=== PATIENT | female | born 1980 | race Caucasian/White ===

== ENCOUNTER 2018-06-01 23:42 | Observation (INO) | payer BC ==
[2018-06-01 23:45] VITALS: BMI 31.3
[2018-06-02] MEDS ORDERED: KETOROLAC TROMETHAMINE 30 MG/1 ML VIAL ONE (00:08)
[2018-06-02] MEDS ORDERED: KETOROLAC TROMETHAMINE 15 MG/ML VIAL IVPUSH ONE ×2 (00:11→03:31)
[2018-06-02] MEDS ORDERED: SODIUM CHLORIDE 0.9% 500 ML INFUS.BAG IV ONE (00:12)
[2018-06-02 00:19] LABS: BASO % 0.8 % (0-2.0); EOS % 1.8 % (0-4.5); HEMATOCRIT 38.8 % (32.4-45.2); HEMOGLOBIN 13.1 GM/dL (10.7-15.3); LYMPH % 29.3 % (8-40); MCH 29.9 pg (25.7-33.7); MCHC 33.7 g/dl (32.0-36.0); MEAN CELL VOLUME 88.8 fl (80-96); MEAN PLT VOLUME 8.6 fl (7.5-11.1); NEUT % 58.1 % (42.8-82.8); PLATELET COUNT 210 K/MM3 (134-434); RBC 4.36 M/mm3 (3.60-5.2); RDW 12.6 % (11.6-15.6); WHITE BLOOD COUNT 8.6 K/mm3 (4.0-10.0)
[2018-06-02 00:27] LABS: URINE APPEARANCE CLEAR; URINE BILIRUBIN NEGATIVE (<2.0 mg/dL); URINE COLOR COLORLESS; URINE GLUCOSE (UA) NEGATIVE (NEGATIVE); URINE KETONE NEGATIVE (NEGATIVE); URINE LEUK ESTERASE NEGATIVE (NEGATIVE); URINE NITRITE NEGATIVE (NEGATIVE); URINE PROTEIN NEGATIVE (NEGATIVE); URINE UROBILINOGEN NEGATIVE mg/dL (0.2-1.0)
[2018-06-02] MEDS ORDERED: HYDROmorphone HCl 2 MG/ML VIAL ONE (00:37)
[2018-06-02] MEDS ORDERED: HYDROmorphone HCL CARPU-JECT 2 MG/1 ML DISP.SYRIN IVPUSH ONE (00:38)
[2018-06-02] MEDS ORDERED: ONDANSETRON 4 MG/2 ML VIAL IVPUSH ONE ×2 (00:38→06:38)
[2018-06-02 00:40] LABS: ALBUMIN 3.8 g/dl (3.4-5.0); ALK PHOS 52 U/L (45-117); ANION GAP 8 MMOL/L (8-16); BILIRUBIN,TOTAL 0.3 mg/dL (0.2-1); BLOOD UREA NITROGEN 14 mg/dL (7-18); CALCIUM 8.8 mg/dL (8.5-10.1); CHLORIDE 106 mmol/L (98-107); CO2 25 mmol/L (21-32); CREATININE 0.8 mg/dL (0.55-1.3); GLUCOSE,RANDOM 82 mg/dL (74-106); POTASSIUM 3.6 mmol/L (3.5-5.1); SGOT/AST 22 U/L (15-37); SGPT/ALT 23 U/L (13-61); SODIUM 140 mmol/L (136-145)
--- NOTE | 2018-06-02 00:53 | PDOC ---
History of Present Illness - General Chief Complaint: Pain, Acute Stated Complaint: PAIN, ACUTE Time Seen by Provider: 06/01/18 23:57 History Source: Patient Exam Limitations: No Limitations - History of Present Illness Initial Comments: 37 y/o female presenting to [facility] ER via private auto complaining of sudden onset of right flank pain and dysuria this evening. Denies hematuria, discharge , fevers, chills, or diaphoresis. Pt reports she has a similar episode on Tuesday (05/28/2018). She was evaluated at [place] [facility] and diagnosed with a right nephrolithiasis via CT scan. She was subsequently started on Flomax and followed up with Dr. Allen as outpatient on Tuesday (05/31/2018). KUB was obtained and showed a 6 x 4mm right urethral calculus at L3 level. She is scheduled for a procedure by Dr. Allen this coming Tuesday (06/06/2018). Was told to present to this department if her pain returned. 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 controlled Surgical Hx: - Past History - Past Medical History Allergies/Adverse Reactions: Allergies Allergy/AdvReac Type Severity Reaction Status Date / Time No Known Allergies Allergy Verified 06/01/18 23:45 Home Medications: Ambulatory Orders Tamsulosin HCl [Flomax] 0.4 mg PO DAILY 06/02/18 COPD: No - Suicide/Smoking/Psychosocial Hx Smoking History: Never smoked Review of Systems - Review of Systems Able to Perform ROS?: Yes Comments:: In addition to that documented in the HPI above, the additional ROS was obtained : Constitutional: Denies fevers or chills Eyes: Denies vision changes ENMT: Denies sore throat CV: Denies chest pain Resp: Denies SOB GI: Denies vomiting or diarrhea *Physical Exam - Vital Signs Last Vital Signs Temp Pulse Resp BP Pulse Ox 97.8 F 82 18 99/84 99 06/01/18 23:43 06/01/18 23:43 06/01/18 23:43 06/01/18 23:43 06/01/18 23:43 - Physical Exam Comments: Constitutional: Well-developed, well-nourished, nontoxic female in obvious discomfort. Found standing up pacing beside hospital bed. Alert and oriented x4. Answered all questions appropriately and completely. Speech was non-labored , non-pressured. HEENT: Normocephalic. No obvious external signs of trauma. Hearing grossly normal. No nasal discharge. Neck is supple, trachea is midline. Cardiovascular: Regular rate and regular rhythm. No murmur, rubs, clicks, or gallops. Peripheral pulses: Radial pulses full. Respiratory: Breathing unlabored. Equal chest rise and fall. Clear to auscultation bilaterally. No stridor, no wheezing, no rhonchi. Gastrointestinal: abdomen is mildly tender in RLQ and R flank without rebound or guarding. No overlying skin lesions or obvious signs of trauma. Neuro: Alert and oriented. Moving all four extremities spontaneously. Gait normal, observed walking through the department. Skin: Warm, dry, and intact. No bruising, rashes, or other lesions. No palpable nodules. : Moderate R CVA tenderness. Psych: Affect: appropriate. Mood: normal. Heart Score/ECG Review #1 General ECG Interpretation: Sinus Rhythm, Normal Rate, Normal Intervals, No acute ischemic changes ED Treatment Course - LABORATORY CBC & Chemistry Diagram: 06/01/18 23:50 06/01/18 23:50 - ADDITIONAL ORDERS Additional order review: Laboratory Results 06/02/18 06/02/18 06/01/18 00:05 00:05 23:50 Sodium 140 Potassium 3.6 Chloride 106 Carbon Dioxide 25 Anion Gap 8 BUN 14 Creatinine 0.8 Creat Clearance w eGFR > 60 Random Glucose 82 Calcium 8.8 Total Bilirubin 0.3 AST 22 ALT 23 Alkaline Phosphatase 52 Total Protein 7.0 Albumin 3.8 Urine Color Colorless Urine Appearance Clear Urine pH 7.0 Ur Specific [place] 1.001 L Urine Protein Negative Urine Glucose (UA) Negative Urine Ketones Negative Urine Blood 1+ H Urine Nitrite Negative Urine Bilirubin Negative Urine Urobilinogen Negative Ur Leukocyte Esterase Negative Urine WBC (Auto) 0-2 Urine RBC (Auto) <1 Urine HCG, Qual Negative 06/01/18 23:50 RBC 4.36 MCV 88.8 MCHC 33.7 RDW 12.6 MPV 8.6 Neutrophils % 58.1 Lymphocytes % 29.3 Monocytes % 10.0 Eosinophils % 1.8 Basophils % 0.8 - RADIOLOGY Radiology Studies Ordered: Category Date Time Status KIDNEY / RENAL US [US] Stat Ultrasound 06/02/18 00:17 Taken Radiograph Interpretation: Renal and Bladder U/S: Marlo Keane MD wrote on Jun 02, 2018 at 02:12 AM: Referring Physician: BISHOP PASTRANA Patient Name: KAILEE HOWELL THIS IS A PRELIMINARY REPORT FROM [facility] DATE OF SERVICE: 2018-06-02 00:36:04 IMAGES: 36 EXAM: Bilateral renal ultrasound HISTORY: Right flank pain. Known stone. Rule out hydronephrosis. COMPARISON: No prior scans transmitted for comparison FINDINGS: Right kidney measures 12.6 cm x 6.4 cm x 5.9 cm. There is moderate right hydronephrosis. Left kidney measures 11.9 cm x 5.3 cm x 4.7 cm. No left hydronephrosis. THIS DOCUMENT HAS BEEN ELECTRONICALLY SIGNED Marlo Keane MD 06/02/2018 02:12 EST - Medications Given in the ED: ED Medications Discontinued Medications Generic Name Dose Route Start Last Admin Trade Name Freq PRN Reason Stop Dose Admin Hydromorphone HCl 0.5 mg 06/02/18 00:38 06/02/18 00:40 Dilaudid Injection - IVPUSH 06/02/18 00:39 0.5 mg ONCE ONE Administration Ketorolac Tromethamine 30 mg 06/02/18 00:11 06/02/18 00:16 Toradol Injection - IVPUSH 06/02/18 00:12 30 mg ONCE ONE Administration Ondansetron HCl 4 mg 06/02/18 00:38 06/02/18 00:40 Zofran Injection IVPUSH 06/02/18 00:39 4 mg ONCE ONE Administration Sodium Chloride 1,000 ml 06/02/18 00:12 06/02/18 00:16 Normal Saline - IV 06/02/18 00:13 1,000 ml ONCE ONE Administration Medical Decision Making - Medical Decision Making *Reviewed vital signs, nursing notes, and prior visit documentation (if available). 37 y/o female complaining of recurrent episode of right flank pain. Diagnosed with right urethral calculus earlier this week. Afebrile. Vitals remarkable for borderline hypotension without tachycardia. No peritoneal signs on abdominal exam. Suspect renal colic secondary to nephrolithiasis from known calculus. Low suspicion for concurrent infection without systemic symptoms or fever. D/D: ectopic , pyelonephritis, cystitis. Ordered ketorolac, hydromorphone, zofran, and NS IVFB for symptom relief. UPreg: negative UA remarkable only for 1+ blood. Continue to have low suspicion for infectious cause. CBC unremarkable for leukocytosis or anemia. BMP unremarkable for elevation of BUM or Cr. GFR >60. U/S revealed moderate right hydronephrosis. 02:28 Telephone page sent to physician continuous improvement engineer for Dr. Allen. No answer for turret punch operator. Text page sent. Awaiting call back. Pt reports pain is managed at an acceptable level at this point. 02:[address] Barnes, urologist covering for Dr. Allen. Requested pt be admitted with concern for moderate hydronephrosis. Will evaluate pt in the morning. Microblog sent to [facility] for admission. 06/02/18 03:09 Bedside consultation with resident Dr. Barnes. Will admit pt to med/surg on observation status for attending Dr. Gonsales. *DC/Admit/Observation/Transfer Diagnosis at time of Disposition: Hydronephrosis concurrent with and due to calculi of kidney and ureter - Discharge Dispostion Condition at time of disposition: Stable Decision to Admit order: Yes - Referrals - Patient Instructions - Post Discharge Activity
--- NOTE | 2018-06-02 01:06 | PDOC ---
Attending Attestation - Resident Resident Name: Deniz Jenkins - ED Attending Attestation I have performed the following: I have examined & evaluated the patient, The case was reviewed & discussed with the resident, I agree w/resident's findings & plan, Exceptions are as noted - Medical Decision Making 06/02/18 00:46 I, Dr. Zuri Tolliver DO, attest that this document has been prepared under my direction and personally reviewed by me in its entirety. I further attest, that it accurately reflects all work, treatment, procedures and medical decision -making performed by me. 06/02/18 00:49 a/p: 37yo female with recent diagnosis of R renal colic -worsening pain today -saw dr. barnes yesterday and confirmed 5mm stone to R side -worsening acute r sided pain today -will send labs, ua, will medicate for pain -will obtain renal ultrasound -will monitor and reassess <Zuri Tolliver - Last Filed: 06/02/18 00:45> - HPI HPI: 06/02/18 01:11 The patient is a 37 year old female with no significant past medical history who presents to the ED with complaints of right flank pain. Patient was recently diagnosed with a 5 ml kidney stone on Tuesday (05/29/18) at [facility]. Patient saw Dr. Barnes and scheduled for a lithotripsy next week. Patient has been drinking water and taking her medications. She reports a sudden onset of worsening right flank pain tonight and came into the ED. Denies fever or chills. Denies any other symptoms. Social hx: Patient has 4 children, and 1 C-secion Documentation prepared by Rob Harris, acting as medical record retrieval specialist for Zuri Tolliver DO. - Physicial Exam PE: 06/02/18 01:12 Constitutional: + tearful, uncomfortable appearing. Awake, alert, oriented. Head: Normocephalic. Atraumatic Eyes: PERRL. EOMI. Conjunctivae are not pale. ENT: Mucous membranes are moist and intact. Posterior pharynx without exudates or erythema. Uvula midline. Neck: Supple. Full ROM. No lymphadenopathy. Cardiovascular: Regular rate. Regular rhythm. S1, S2 regular. Distal pulses are 2+ and symmetric. Pulmonary/Chest: No evidence of respiratory distress. Clear to auscultation bilaterally No wheezing, rales or rhonchi. Abdominal: Soft and non-distended. There is no tenderness. No rebound, guarding or rigidity. No organomegaly. No palpable masses. Good bowel sounds. Back: + Right flank tenderness, right CVA tenderness. Musculoskeletal: No edema. No cyanosis. No clubbing. Full range of motion in all extremities. Nocalf tenderness. Radial/pedal pulses are intact and 2+ bilaterally Skin: Skin is warm and dry. No petechiae. No purpura. Neurological: Alert and oriented to person, place, and time. Cranial nerves II -XII are grossly intact. Normal speech. Strength is grossly symmetric. No sensory deficits. Psychiatric: Good eye contact. Normal interaction, affect and behavior. <Rob Harris - Last Filed: 06/02/18 01:12>
--- NOTE | 2018-06-02 03:30 | HP ---
CHIEF COMPLAINT: Right Flank Pain PCP: None- Referred to our Resident [facility] HISTORY OF PRESENT ILLNESS: Pt is a 37 y/o lady with a significant past medical history of Bo Parkinson White who presented to [facility] yesterday eveing () c/o severe Right CVA tenderness. Pain is described as sharp, intermittent, an unremitting. Pt endorses that she initially experienced this pain on Tuesday night. Pt went to [facility] that night and under a CT Scan of her Abdomen/Pelvis. Pt states CT scan revealed a calculus in her R ureter. Pt subsequently followed up with her Urologist on Tuesday who ordered a KUB which revealed a 6 x 4mm right urethral calculus at L3 level. Pt was started on Flomax 0.4 mg and scheduled for kidney stone treatment with extracorporeal shock wave lithotripsy this upcoming , Jun 06. Pt states she has never experienced this type of pain before and has never had a kidney stone in the past. Presently denying shortness of breath, chest pain, nausea, vomiting, dysuria, or hematuria. ER course was notable for: (1) Renal/Bladder U/S--> moderate right hydronephrosis. (2) Urinalysis--> 1+ Blood (3) Dialudid 0.5 IVPUSH/Zofran 4 mg in ED Recent Travel: Denies PAST MEDICAL HISTORY: WPW, had ablation, but has since returned. Follows a Meal Attendant PAST SURGICAL HISTORY: Social History: Smoking: Denies Alcohol: Denies Drugs: Denies Family History: Allergies No Known Allergies Allergy (Verified 06/01/18 23:45) HOME MEDICATIONS: Home Medications Medication Instructions Recorded Tamsulosin HCl [Flomax] 0.4 mg PO DAILY 06/02/18 REVIEW OF SYSTEMS CONSTITUTIONAL: Absent: fever, chills, diaphoresis, generalized weakness, malaise, loss of appetite, weight change HEENT: Absent: rhinorrhea, nasal congestion, throat pain, throat swelling, difficulty swallowing, mouth swelling, ear pain, eye pain, visual changes CARDIOVASCULAR: Absent: chest pain, syncope, palpitations, irregular heart rate, lightheadedness , peripheral edema RESPIRATORY: Absent: cough, shortness of breath, dyspnea with exertion, orthopnea, wheezing, stridor, hemoptysis GASTROINTESTINAL: Absent: abdominal pain, abdominal distension, nausea, vomiting, diarrhea, constipation, melena, hematochezia GENITOURINARY: PRESENT: , hematuria, flank pain MUSCULOSKELETAL: Absent: myalgia, arthralgia, joint swelling, back pain, neck pain SKIN: Absent: rash, itching, pallor HEMATOLOGIC/IMMUNOLOGIC: Absent: easy bleeding, easy bruising, lymphadenopathy, frequent infections ENDOCRINE: Absent: unexplained weight gain, unexplained weight loss, heat intolerance, cold intolerance NEUROLOGIC: Absent: headache, focal weakness or paresthesias, dizziness, unsteady gait, seizure, mental status changes, bladder or bowel incontinence PSYCHIATRIC: Absent: anxiety, depression, suicidal or homicidal ideation, hallucinations. PHYSICAL EXAMINATION Vital Signs - 24 hr 06/01/18 06/02/18 23:43 01:17 Temperature 97.8 F Pulse Rate 82 Pulse Rate [ 90 Right Apical] Respiratory 18 Rate Blood Pressure 99/84 Blood Pressure 118/85 [Left Arm] O2 Sat by Pulse 99 95 Oximetry (%) GENERAL: AaoX3 NAD HEAD: NC/AT EYES: EOMI PERRLA EARS, NOSE, THROAT:MMM NECK: Supple LUNGS: CTA B/L, No wheezing, rales, or rhonchi. HEART: RRR No MRG S1 S2 ABDOMEN: ND NT No HSM MUSCULOSKELETAL: + CVA tenderness R Side UPPER EXTREMITIES: 2+ pulses, warm, well-perfused. No cyanosis. No clubbing. No peripheral edema. LOWER EXTREMITIES: 2+ pulses, warm, well-perfused. No calf tenderness. No peripheral edema. NEUROLOGICAL: Cranial nerves II-XII intact. Normal speech. Normal gait. PSYCHIATRIC: Cooperative. Good eye contact. Appropriate mood and affect. SKIN: Warm, dry, normal turgor, no rashes or lesions noted, normal capillary refill. Laboratory Results - last 24 hr 06/01/18 06/01/18 06/02/18 23:50 23:50 00:05 WBC 8.6 RBC 4.36 Hgb 13.1 Hct 38.8 MCV 88.8 MCH 29.9 MCHC 33.7 RDW 12.6 Plt Count 210 MPV 8.6 Absolute Neuts (auto) 5.0 Neutrophils % 58.1 Lymphocytes % 29.3 Monocytes % 10.0 Eosinophils % 1.8 Basophils % 0.8 Nucleated RBC % 0 Sodium 140 Potassium 3.6 Chloride 106 Carbon Dioxide 25 Anion Gap 8 BUN 14 Creatinine 0.8 Creat Clearance w eGFR > 60 Random Glucose 82 Calcium 8.8 Total Bilirubin 0.3 AST 22 ALT 23 Alkaline Phosphatase 52 Total Protein 7.0 Albumin 3.8 Urine Color Colorless Urine Appearance Clear Urine pH 7.0 Ur Specific [place] 1.001 L Urine Protein Negative Urine Glucose (UA) Negative Urine Ketones Negative Urine Blood 1+ H Urine Nitrite Negative Urine Bilirubin Negative Urine Urobilinogen Negative Ur Leukocyte Esterase Negative Urine WBC (Auto) 0-2 Urine RBC (Auto) <1 Urine HCG, Qual 06/02/18 00:05 WBC RBC Hgb Hct MCV MCH MCHC RDW Plt Count MPV Absolute Neuts (auto) Neutrophils % Lymphocytes % Monocytes % Eosinophils % Basophils % Nucleated RBC % Sodium Potassium Chloride Carbon Dioxide Anion Gap BUN Creatinine Creat Clearance w eGFR Random Glucose Calcium Total Bilirubin AST ALT Alkaline Phosphatase Total Protein Albumin Urine Color Urine Appearance Urine pH Ur Specific [place] Urine Protein Urine Glucose (UA) Urine Ketones Urine Blood Urine Nitrite Urine Bilirubin Urine Urobilinogen Ur Leukocyte Esterase Urine WBC (Auto) Urine RBC (Auto) Urine HCG, Qual Negative ASSESSMENT/PLAN: Pt is a 37 y/o lady with a significant past medical history of Bo Parkinson White who presented to [facility] yesterday eveing () c/o severe Right CVA tenderness #Ureterolithiasis -KUB --> 6 x 4mm right urethral calculus at L3 level -CT ABD/PELVIS--> Record at [place]. Pt endorses scan revealed Calculus. -Renal/Bladder sonogram--> moderate right hydronephrosis. -Urology consult - Toradol PRN for analgesia -IV Fluids -ESWL 06/06/18 -Possible Ureteroscopy jj stent if WBC count rises or progressively increased pain FEN LR @ 150 cc/hr Monitor electrolytes Regular Diet DVT ppx: Lovenox Sq 40 Dispo: Monitor on floor Visit type - Emergency Visit Emergency Visit: Yes ED Registration Date: 06/02/18 Care time: The patient presented to the Emergency Department on the above date and was hospitalized for further evaluation of their emergent condition. - New Patient This patient is new to me today: Yes Date on this admission: 06/02/18 - Critical Care Critical Care patient: No
--- NOTE | 2018-06-02 03:37 | PN ---
Teaching Attending Note Name of Resident: Dean Barnes ATTENDING PHYSICIAN STATEMENT I saw and evaluated the patient. I reviewed the resident's note and discussed the case with the resident. I agree with the resident's findings and plan as documented. SUBJECTIVE: Patient is a 37 year old woman with hsitory of WPW presenting to the ER complaining of sudden onset of right flank pain and dysuria this evening. Denies hematuria, discharge, fevers, chills, or diaphoresis. She had a similar episode on Tuesday (05/28/2018) and was evaluated at [place] [facility] and diagnosed with a right nephrolithiasis via CT scan. She was subsequently started on Flomax and followed up with Dr. Allen as outpatient on Tuesday (05/31/2018 ). KUB was obtained and showed a 6 x 4mm right urethral calculus at L3 level. She is scheduled for a procedure by Dr. Allen on Tuesday (06/06/2018). Was told to present to the ER if her pain reoccured. OBJECTIVE: Alert Vital Signs Period Temp Pulse Resp BP Sys/Márquez Pulse Ox Last 24 Hr 97.8 F 82-90 18 99-118/84-85 95-99 HEENT: No Jaundice, eye redness or discharge, PERRLA, EOMI. Normocephalic, atraumatic. External ears are normal and hearing is grossly intact. No nasal discharge. Neck: Supple, nontender. No palpable adenopathy or thyromegaly. No JVD Chest: Good effort. Clear to auscultation and percussion. Heart: Regular. No S3, rub or murmur Abdomen: Not distended, soft, Right CVAT and no HSM. No rebound or guarding. Normoactive bowel sounds. Ext: Peripheral pulses intact. No leg edema. Skin: Warm and dry. No petechiae, rash or ecchymosis. Neuro: Alert. Oriented x3. CN 2-12 grossly intact. Sensation grossly intact in all four extremities and DTR are symmetric. Current Medications Generic Name Dose Route Start Last Admin Trade Name Freq PRN Reason Stop Dose Admin Ketorolac Tromethamine 15 mg 06/02/18 03:31 Toradol Injection - IVPUSH 06/02/18 03:32 ONCE ONE Home Medications Medication Instructions Recorded Tamsulosin HCl [Flomax] 0.4 mg PO DAILY 06/02/18 Abnormal Lab Results 06/02/18 00:05 Ur Specific [place] 1.001 L Urine Blood 1+ H ASSESSMENT AND PLAN: 1. Right ureteral stone with moderate hydronephrosis - Getting Toradol for pain control, zofran, flomax and IV NS. Needs workup as outpatient to search for stone disease risk factor. Strain her urine. Urology consult. No evidence of infection at this time. 2. DVT prophylaxis - Lovenox 40 mg SQ q 24 hours. 3. Advance directives - Full code
[2018-06-02] MEDS ORDERED: LACTATED RINGERS SOLUTION 1,000 ML/1,000 ML INFUS.BAG IV SCH (05:15)
[2018-06-02] MEDS ORDERED: ONDANSETRON 4 MG/2 ML VIAL ONE (06:34)
[2018-06-02 07:13] LABS: BASO % 0.5 % (0-2.0); EOS % 0.7 % (0-4.5); HEMATOCRIT 37.5 % (32.4-45.2); HEMOGLOBIN 12.6 GM/dL (10.7-15.3); LYMPH % 15.7 % (8-40); MCH 29.8 pg (25.7-33.7); MCHC 33.5 g/dl (32.0-36.0); MEAN PLT VOLUME 8.4 fl (7.5-11.1); MONO % 7.3 % (3.8-10.2); NEUT % 75.8 % (42.8-82.8); PLATELET COUNT 170 K/MM3 (134-434); RBC 4.21 M/mm3 (3.60-5.2); RDW 12.5 % (11.6-15.6); WHITE BLOOD COUNT 8.3 K/mm3 (4.0-10.0)
[2018-06-02 07:29] LABS: INR 1.11 (0.83-1.09); PROTHROMBIN TIME (PATIENT) 13.1 SEC (9.7-13.0)
[2018-06-02 07:31] LABS: ACTIVATED PTT 26.4 SECONDS (25.2-36.5)
[2018-06-02 07:40] LABS: ANION GAP 7 MMOL/L (8-16); BLOOD UREA NITROGEN 13 mg/dL (7-18); CALCIUM 8.2 mg/dL (8.5-10.1); CHLORIDE 110 mmol/L (98-107); CO2 25 mmol/L (21-32); CREATININE 0.6 mg/dL (0.55-1.3); GLUCOSE,RANDOM 81 mg/dL (74-106); MAGNESIUM 2.2 mg/dL (1.8-2.4); PHOSPHOROUS 3.6 mg/dL (2.5-4.9); POTASSIUM 4.4 mmol/L (3.5-5.1); SODIUM 142 mmol/L (136-145)
--- NOTE | 2018-06-02 08:51 | EKG ---
Test Reason : Blood Pressure : / mmHG Vent. Rate : 071 BPM Atrial Rate : 071 BPM P-R Int : 196 ms QRS Dur : 094 ms QT Int : 402 ms P-R-T Axes : 063 039 025 degrees QTc Int : 436 ms NORMAL SINUS RHYTHM NORMAL ECG NO PREVIOUS ECGS AVAILABLE Confirmed by FIDEL MAN MD ([id number]) on 06/02/2018 8:51:13 AM Referred By: Confirmed By:FIDEL MAN MD
[2018-06-02] MEDS ORDERED: ENOXAPARIN NA (PORCINE) 40 MG/0.4 ML DISP.SYRIN SQ SCH (10:00)
--- NOTE | 2018-06-02 11:07 | PN ---
Progress Note (short form) - Note Progress Note: UROLOGY NOTE 37 Y/O Female patient with history of Rt renal stone admitted for Rt colic and moderate hydronephrosis. Plan: NPO will schedule her for Rt URS and jj stent insertion today.
[2018-06-02] MEDS ORDERED: KETOROLAC TROMETHAMINE 15 MG/ML VIAL ONE (11:19)
--- NOTE | 2018-06-02 13:10 | PN ---
Physical Exam: SUBJECTIVE: Patient seen and examined. Pain is controlled with Toradol. OBJECTIVE: Vital Signs Period Temp Pulse Resp BP Sys/Márquez Pulse Ox Last 24 Hr 97.8 F-98.4 F 82-90 18-18 99-123/78-85 95-99 GENERAL: The patient is awake, alert, and fully oriented, in no acute distress. LUNGS: Breath sounds equal, clear to auscultation bilaterally, no wheezes, no crackles, no accessory muscle use. HEART: Regular rate and rhythm, S1, S2 without murmur, rub or gallop. ABDOMEN: Obese, soft, nontender, nondistended, normoactive bowel sounds, no guarding, no rebound, no hepatosplenomegaly, no masses. No CVA tenderness. EXTREMITIES: 2+ pulses, warm, well-perfused, no edema. Laboratory Results - last 24 hr 06/01/18 06/01/18 06/02/18 23:50 23:50 00:05 WBC 8.6 RBC 4.36 Hgb 13.1 Hct 38.8 MCV 88.8 MCH 29.9 MCHC 33.7 RDW 12.6 Plt Count 210 MPV 8.6 Absolute Neuts (auto) 5.0 Neutrophils % 58.1 Lymphocytes % 29.3 Monocytes % 10.0 Eosinophils % 1.8 Basophils % 0.8 Nucleated RBC % 0 PT with INR INR PTT (Actin FS) Sodium 140 Potassium 3.6 Chloride 106 Carbon Dioxide 25 Anion Gap 8 BUN 14 Creatinine 0.8 Creat Clearance w eGFR > 60 Random Glucose 82 Calcium 8.8 Phosphorus Magnesium Total Bilirubin 0.3 AST 22 ALT 23 Alkaline Phosphatase 52 Total Protein 7.0 Albumin 3.8 Urine Color Colorless Urine Appearance Clear Urine pH 7.0 Ur Specific [place] 1.001 L Urine Protein Negative Urine Glucose (UA) Negative Urine Ketones Negative Urine Blood 1+ H Urine Nitrite Negative Urine Bilirubin Negative Urine Urobilinogen Negative Ur Leukocyte Esterase Negative Urine WBC (Auto) 0-2 Urine RBC (Auto) <1 Urine HCG, Qual 06/02/18 06/02/18 06/02/18 00:05 06:49 06:49 WBC 8.3 RBC 4.21 Hgb 12.6 Hct 37.5 MCV 89.0 MCH 29.8 MCHC 33.5 RDW 12.5 Plt Count 170 MPV 8.4 Absolute Neuts (auto) 6.3 Neutrophils % 75.8 D Lymphocytes % 15.7 D Monocytes % 7.3 Eosinophils % 0.7 Basophils % 0.5 Nucleated RBC % 0 PT with INR 13.10 H INR 1.11 H PTT (Actin FS) 26.4 Sodium Potassium Chloride Carbon Dioxide Anion Gap BUN Creatinine Creat Clearance w eGFR Random Glucose Calcium Phosphorus Magnesium Total Bilirubin AST ALT Alkaline Phosphatase Total Protein Albumin Urine Color Urine Appearance Urine pH Ur Specific [place] Urine Protein Urine Glucose (UA) Urine Ketones Urine Blood Urine Nitrite Urine Bilirubin Urine Urobilinogen Ur Leukocyte Esterase Urine WBC (Auto) Urine RBC (Auto) Urine HCG, Qual Negative 06/02/18 06:49 WBC RBC Hgb Hct MCV MCH MCHC RDW Plt Count MPV Absolute Neuts (auto) Neutrophils % Lymphocytes % Monocytes % Eosinophils % Basophils % Nucleated RBC % PT with INR INR PTT (Actin FS) Sodium 142 Potassium 4.4 Chloride 110 H Carbon Dioxide 25 Anion Gap 7 L BUN 13 Creatinine 0.6 Creat Clearance w eGFR > 60 Random Glucose 81 Calcium 8.2 L Phosphorus 3.6 Magnesium 2.2 Total Bilirubin AST ALT Alkaline Phosphatase Total Protein Albumin Urine Color Urine Appearance Urine pH Ur Specific [place] Urine Protein Urine Glucose (UA) Urine Ketones Urine Blood Urine Nitrite Urine Bilirubin Urine Urobilinogen Ur Leukocyte Esterase Urine WBC (Auto) Urine RBC (Auto) Urine HCG, Qual Active Medications Generic Name Dose Route Start Last Admin Trade Name Freq PRN Reason Stop Dose Admin Lactated Ringer's 1,000 ml in 1,000 mls @ 125 mls/hr 06/02/18 05:15 06/02/18 06:27 Lactated Ringers Solution IV 125 mls/hr [facility] Administration ASSESSMENT/PLAN: This is a 37 year old woman with a history of WPW and ablation who presented to ED with right flank pain. 1. Obstructing right ureteral stone with moderate right hydronephrosis - Continue IV fluid, Toradol for pain - Plan for right ureteroscopy and double J stent today 2. History of WPW and ablation Visit type - Emergency Visit Emergency Visit: Yes ED Registration Date: 06/02/18 Care time: The patient presented to the Emergency Department on the above date and was hospitalized for further evaluation of their emergent condition. - New Patient This patient is new to me today: Yes Date on this admission: 06/02/18 - Critical Care Critical Care patient: No - Discharge Referral Referred to [facility] Med P.C.: No
[2018-06-02] MEDS ORDERED: oxyCODONE HCL 5 MG TABLET PO PRN (15:53)
[2018-06-02] MEDS: LACTATED RINGERS SOLUTION 1,000 ML IV SCH ×3 (16:17→19:41)
[2018-06-02] MEDS ORDERED: MIDAZOLAM HCL 2 MG/2 ML SINGLE DOSE VIAL ONE (16:35)
[2018-06-02] MEDS ORDERED: LIDOCAINE HCL 2% 100 MG/5 ML DISP.SYRIN ONE (16:54)
[2018-06-02] MEDS ORDERED: ceFAZolin SODIUM 1 GM VIAL IVPB ONE (17:04)
--- NOTE | 2018-06-02 17:23 | CONS ---
DATE OF CONSULTATION: DATE OF DICTATION: 06/02/2018 HISTORY OF PRESENT ILLNESS: The patient is a 37-year-old female with known history of nephrolithiasis. She presented to the [facility] emergency room complaining of sudden onset of right flank pain. This was colicky in nature and grade 10/10. This radiated to the right lower quadrant and right . It was associated with dysuria. Patient also vomited. She denies any hematuria. Patient states that she was at the [facility] last week and a CT scan revealed right nephrolithiasis. Patient was given Flomax. She was seen by Dr. Allen and a 6-mm right stone was seen in the upper right ureter. She was scheduled to undergo extracorporeal shockwave lithotripsy but due to passage of the stone into the mid ureter, the patient is acutely ill. 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 She has had a . She denies any allergies to any medications. She has been on Flomax 0.4 mg daily. She denies ethanolism or tobacco. PHYSICAL EXAMINATION: Temperature in the emergency room was 97.8, blood pressure was 99/84, pulse 82, pulse oximetry 99. The patient appears to be a well developed female nontoxic with obvious discomfort. She was pacing around. She was alert, oriented. Chest is clear. Heart is regular. Abdomen is soft. There is right CVA tenderness, right lower quadrant tenderness. Neurological: She is alert and oriented. No focal deficits. Extremities revealed full range of motion with no cyanosis, clubbing, or edema. LABORATORY: A CBC in the emergency room revealed the white count at 8.6, hemoglobin and hematocrit , platelets were 210, BUN and creatinine were 14/0.8 respectively. Random glucose was 82. Liver enzymes were normal. Her urine revealed blood negative nitrates. A renal ultrasound revealed a moderate right hydronephrosis. IMPRESSION/PLAN: The patient was given Dilaudid and Zofran in the emergency room. Presently the patient will undergo a cystourethroscopy, right retrograde pyelogram, right ureteroscopy, possible laser lithotripsy and placement of a right JJ stent. The procedure was was explained to the patient, and she agrees. Nina [id number]
--- NOTE | 2018-06-02 17:40 | OP ---
Operative Note - Note: Operative Date: 06/02/18 Pre-Operative Diagnosis: rt. ureteral stone,rt. renal colick, rt. hydronephrosis Operation: cysto. rt retrograde pyelogram and rt. stone manipulation and rt. jj stent insertion Findings: rt. mid ureteral stone Post-Operative Diagnosis: Same as Pre-op Surgeon: Greg Barnes Anesthesia: General Specimens Removed: urine Estimated Blood Loss (mls): 0 Drains & Tubes with Location: 24cm 6f rt. jj stent Drains, Volume Out (mls): 0 Blood Volume Replaced (mls): 0 Fluid Volume Replaced (mls): 0 Operative Report Dictated: Yes
[2018-06-02] MEDS ORDERED: ACETAMINOPHEN 1000 MG/100 ML VIAL (NON FORMULARY) IVPB ONE (17:50)
[2018-06-02] MEDS ORDERED: ACETAMINOPHEN INJECTION 100 ML IVPB ONE (17:54)
[2018-06-02] MEDS ORDERED: CEFTRIAXONE 1 GM in DEXTROSE 5%-WATER - 50 ML IVPB ONE (18:15)
[2018-06-02] MEDS ORDERED: cefTRIAXone SODIUM 1 GM VIAL ONE (19:14)
[2018-06-02] MEDS ORDERED: DEXTROSE 5%-WATER - 50 ML IVPB ONE (19:14)
[2018-06-02] MEDS ORDERED: ACETAMINOPHEN 325 MG TABLET (FP) PO PRN (22:15)
[2018-06-03] MEDS: ONDANSETRON 4 MG/2 ML VIAL IVPUSH PRN ×2 (04:40→11:48)
[2018-06-03] MEDS: oxyCODONE HCL 5 MG TABLET PO PRN ×2 (04:40→11:40)
--- NOTE | 2018-06-03 09:59 | PN ---
Physical Exam: SUBJECTIVE: Patient seen and examined OBJECTIVE: Vital Signs Period Temp Pulse Resp BP Sys/Márquez Pulse Ox Last 24 Hr 98 F-99.1 F 61-75 16-20 117-137/70-91 96-100 GENERAL: The patient is awake, alert, and fully oriented, in no acute distress. HEAD: Normal with no signs of trauma. EYES: PERRL, extraocular movements intact, sclera anicteric, conjunctiva clear. No ptosis. ENT: Ears normal, nares patent, oropharynx clear without exudates, moist mucous membranes. NECK: Trachea midline, full range of motion, supple. LUNGS: Breath sounds equal, clear to auscultation bilaterally, no wheezes, no crackles, no accessory muscle use. HEART: Regular rate and rhythm, S1, S2 without murmur, rub or gallop. ABDOMEN: Soft, nontender, nondistended, normoactive bowel sounds, no guarding, no rebound, no hepatosplenomegaly, no masses. EXTREMITIES: 2+ pulses, warm, well-perfused, no edema. NEUROLOGICAL: Cranial nerves II through XII grossly intact. Normal speech, gait not observed. PSYCH: Normal mood, normal affect. SKIN: Warm, dry, normal turgor, no rashes or lesions noted Active Medications Generic Name Dose Route Start Last Admin Trade Name Freq PRN Reason Stop Dose Admin Acetaminophen 650 mg 06/02/18 22:15 06/02/18 22:28 Tylenol - PO 650 mg Q6H PRN Administration Fever Or Pain Fentanyl 50 mcg 06/02/18 15:53 Sublimaze Injection - IVPUSH [id number] PRN PAIN-PACU ORDER X 4 DOSES ONLY Lactated Ringer's 1,000 mls @ 75 mls/hr 06/02/18 16:00 06/02/18 19:41 Lactated Ringers Solution IV 75 mls/hr ASDIR EMY Administration Ondansetron HCl 4 mg 06/02/18 15:53 06/03/18 04:40 Zofran Injection IVPUSH 4 mg Q6H PRN Administration NAUSEA AND/OR VOMITING Oxycodone HCl 10 mg 06/02/18 15:53 Roxicodone - PO Q4H PRN PAIN LEVEL 6-10 Oxycodone HCl 5 mg 06/02/18 15:53 06/03/18 04:40 Roxicodone - PO 5 mg Q4H PRN Administration PAIN LEVEL 1-5 ASSESSMENT/PLAN:
--- NOTE | 2018-06-03 14:56 | PN ---
Teaching Attending Note Name of Resident: Keke Griffiths ATTENDING PHYSICIAN STATEMENT I saw and evaluated the patient. I reviewed the resident's note and discussed the case with the resident. I agree with the resident's findings and plan as documented. SUBJECTIVE: Patient feels better since stent placement. OBJECTIVE: Vital Signs Period Temp Pulse Resp BP Sys/Márquez Pulse Ox Last 24 Hr 98 F-99.1 F 61-86 16-20 117-138/70-91 96-100 HEART: S1S2, RRR LUNGS: Clear ABDOMEN: Obese, soft, non-tender, non-distended, normal BS, no CVA tenderness EXTREMITIES: No edema Current Medications Generic Name Dose Route Start Last Admin Trade Name Freq PRN Reason Stop Dose Admin Acetaminophen 650 mg 06/02/18 22:15 06/02/18 22:28 Tylenol - PO 650 mg Q6H PRN Administration Fever Or Pain Fentanyl 50 mcg 06/02/18 15:53 Sublimaze Injection - IVPUSH [id number] PRN PAIN-PACU ORDER X 4 DOSES ONLY Lactated Ringer's 1,000 mls @ 75 mls/hr 06/02/18 16:00 06/02/18 19:41 Lactated Ringers Solution IV 75 mls/hr ASDIR EMY Administration Oxycodone HCl 10 mg 06/02/18 15:53 Roxicodone - PO Q4H PRN PAIN LEVEL 6-10 Oxycodone HCl 5 mg 06/02/18 15:53 06/03/18 11:40 Roxicodone - PO 5 mg Q4H PRN Administration PAIN LEVEL 1-5 ASSESSMENT AND PLAN: This is a 37 year old woman with a history of WPW and ablation who presented to ED with right flank pain. 1. Obstructing right ureteral stone with moderate right hydronephrosis - s/p cystoscopy, right retrograde pyelogram, right stone manipulation, right JJ stent insertion 06/02 2. History of WPW and ablation 3. Obesity with BMI 33.3 4. Ok for discharge home
[2018-06-03 14:58] VITALS: BP 129/96; PULSE 87; TEMP 98.7
--- NOTE | 2018-06-03 15:06 | DS ---
Physical Exam: SUBJECTIVE: Patient seen and examined. experiencing some discomfort from stent but pain has significantly improved since admission. pain is controlled with oral medications. denies dysuria, hematuria, pyuria, fevers, chest pain, cough, chills, constipation. eating/toileting/ambulating without difficulty. OBJECTIVE: Vital Signs Period Temp Pulse Resp BP Sys/Márquez Pulse Ox Last 24 Hr 98 F-99.1 F 61-87 16-20 117-138/70-96 96-100 PHYSICAL EXAM GENERAL: The patient is awake, alert, in no acute distress. EYES: PERRL, extraocular movements intact, sclera anicteric, conjunctiva clear. ENT: oropharynx clear without exudates, moist mucous membranes. NECK: Trachea midline, full range of motion, supple. LUNGS: Breath sounds equal, clear to auscultation bilaterally, no wheezes, no crackles, no accessory muscle use. HEART: Regular rate and rhythm, S1, S2 without murmur, rub or gallop. ABDOMEN: Soft, nontender, nondistended, normoactive bowel sounds, no guarding, no rebound EXTREMITIES: 2+ radial pulses, warm, well-perfused, no LE edema. LABS Laboratory Tests 06/01/18 06/01/18 06/02/18 23:50 23:50 00:05 WBC 8.6 RBC 4.36 Hgb 13.1 Hct 38.8 MCV 88.8 MCH 29.9 MCHC 33.7 RDW 12.6 Plt Count 210 MPV 8.6 Absolute Neuts (auto) 5.0 Neutrophils % 58.1 Lymphocytes % 29.3 Monocytes % 10.0 Eosinophils % 1.8 Basophils % 0.8 Nucleated RBC % 0 PT with INR INR PTT (Actin FS) Sodium 140 Potassium 3.6 Chloride 106 Carbon Dioxide 25 Anion Gap 8 BUN 14 Creatinine 0.8 Creat Clearance w eGFR > 60 Random Glucose 82 Calcium 8.8 Phosphorus Magnesium Total Bilirubin 0.3 AST 22 ALT 23 Alkaline Phosphatase 52 Total Protein 7.0 Albumin 3.8 Urine Color Colorless Urine Appearance Clear Urine pH 7.0 Ur Specific Moose 1.001 L Urine Protein Negative Urine Glucose (UA) Negative Urine Ketones Negative Urine Blood 1+ H Urine Nitrite Negative Urine Bilirubin Negative Urine Urobilinogen Negative Ur Leukocyte Esterase Negative Urine WBC (Auto) 0-2 Urine RBC (Auto) <1 Urine HCG, Qual 06/02/18 06/02/18 06/02/18 00:05 06:49 06:49 WBC 8.3 RBC 4.21 Hgb 12.6 Hct 37.5 MCV 89.0 MCH 29.8 MCHC 33.5 RDW 12.5 Plt Count 170 MPV 8.4 Absolute Neuts (auto) 6.3 Neutrophils % 75.8 D Lymphocytes % 15.7 D Monocytes % 7.3 Eosinophils % 0.7 Basophils % 0.5 Nucleated RBC % 0 PT with INR 13.10 H INR 1.11 H PTT (Actin FS) 26.4 Sodium Potassium Chloride Carbon Dioxide Anion Gap BUN Creatinine Creat Clearance w eGFR Random Glucose Calcium Phosphorus Magnesium Total Bilirubin AST ALT Alkaline Phosphatase Total Protein Albumin Urine Color Urine Appearance Urine pH Ur Specific Moose Urine Protein Urine Glucose (UA) Urine Ketones Urine Blood Urine Nitrite Urine Bilirubin Urine Urobilinogen Ur Leukocyte Esterase Urine WBC (Auto) Urine RBC (Auto) Urine HCG, Qual Negative 06/02/18 06:49 WBC RBC Hgb Hct MCV MCH MCHC RDW Plt Count MPV Absolute Neuts (auto) Neutrophils % Lymphocytes % Monocytes % Eosinophils % Basophils % Nucleated RBC % PT with INR INR PTT (Actin FS) Sodium 142 Potassium 4.4 Chloride 110 H Carbon Dioxide 25 Anion Gap 7 L BUN 13 Creatinine 0.6 Creat Clearance w eGFR > 60 Random Glucose 81 Calcium 8.2 L Phosphorus 3.6 Magnesium 2.2 Total Bilirubin AST ALT Alkaline Phosphatase Total Protein Albumin Urine Color Urine Appearance Urine pH Ur Specific Moose Urine Protein Urine Glucose (UA) Urine Ketones Urine Blood Urine Nitrite Urine Bilirubin Urine Urobilinogen Ur Leukocyte Esterase Urine WBC (Auto) Urine RBC (Auto) Urine HCG, Qual IMAGING SUMMARIZED: 05/31: KUB xray: Impression: 6 x 4 mm right ureteral calculus at the level of the L3 transverse process. 05/31: Real time examination of the kidneys demonstrates the following: The kidneys are normal in size with the right kidney measuring 12.6 x 5.9 x 6.4 cm and the left kidney measuring 11.9 x 4.7 x 5.3 cm. There is a moderate degree of right-sided hydronephrosis. There is no evidence of left-sided hydronephrosis or obstructive uropathy. There is no sonographic evidence of nephrolithiasis. IMPRESSION: Moderate right-sided hydronephrosis. HOSPITAL COURSE: Date of Admission:06/02/18 - Date of Discharge: 06/03/18 37 y/o woman with a significant past medical history of Bo Parkinson White who presented to [facility] c/o severe Right CVA tenderness. Pain is described as sharp, intermittent, an unremitting. Pt went to [facility] on 05/[address] Scan of her Abdomen/Pelvis. Pt states CT scan had revealed a calculus in her right ureter. She had a KUB xray on 05/31 at [facility] that showed a 6x4 ureteral calculus. She underwent cystoscopy with right retrograde pyelogram and right stone manipulation and right stent insertion without complications. urine culture was sent from procedure, results were pending at time of discharge. symptoms improved and patient was stable for outpatient follow-up with urology and pcp. she was discharged with keflex 500mg tid for 5 days and pain control with percocet. Minutes to complete discharge: 35 Discharge Summary Reason For Visit: HYDRONEPHROSIS CONCURRENT WITH AND DUE TO CALCULI Condition: Stable - Instructions Diet, Activity, Other Instructions: You had a strent placed in your ureter due to an obstructing stone originating in your kidneys. The stent will stay in place until you follow-up with Greg Grimm. Please go to his office on Tuesday at 1pm, he is expecting you. Please follow-up with your primary care physician within one week for post- hospital evaluation. Drink plenty of fluids and avoid strenuous activities until your follow-up. Eat what you can tolerate. Strain all of your urine using a coffee filter to catch any stones and bring them to your visit on Tuesday. Take oxycodone for pain as needed, do not exceed 6 pills in a 24 hour period. A prescription has been sent to your pharmacy. Take Keflex 500mg, an antibiotic, 1 pill every 8 hours for 5 days. If you develop fevers, worsening back, abdominal or genital pain, notice blood in your urine or any new symptoms please return to the hospital as soon as possible. Referrals: Greg Barnes MD [Staff Physician] - 06/05/18 1:00 pm (please go the office at 1pm) Disposition: HOME - Home Medications Comprehensive Discharge Medication List: Ambulatory Orders Tamsulosin HCl [Flomax] 0.4 mg PO DAILY 06/02/18 oxyCODONE HCL [Roxicodone -] 5 mg PO Q4H #20 tablet MDD 6 tabs 06/03/18 This patient is new to me today: No Emergency Visit: Yes ED Registration Date: 06/02/18 Care time: The patient presented to the Emergency Department on the above date and was hospitalized for further evaluation of their emergent condition. Critical Care patient: No - Discharge Referral Referred to [facility] No
--- NOTE | 2018-07-27 16:44 | OP ---
DATE OF OPERATION: 06/02/2018 PREOPERATIVE DIAGNOSIS: Right hydronephrosis, right renal colic, right ureteral stone. OPERATIVE PROCEDURE: Cystourethroscopy, right retrograde pyelogram, right ureteroscopic stone manipulation and placement of a right JJ stent. ANESTHESIA: General. DESCRIPTION OF PROCEDURE: Under above stated anesthesia, patient was prepped and draped in the usual sterile manner. She was placed in the dorsal lithotomy position. Cystoscopy revealed an open bladder neck. The bladder revealed squamous metaplasia of the trigone. Urine was collected for culture and sensitivity. Inspection of the bladder revealed a grade 1 trabeculation. No lesions were noted. No calculi were seen. Ureteral orifices were within normal limits with efflux of clear urine on the left side, no efflux of urine was seen on the right. A Flexi-Tip catheter was placed into the right ureteral orifice and approximately 7 mL of contrast was injected. This revealed the right renal unit. There was a filling defect in the right mid ureter with proximal nephrosis. Delayed films again revealed blockage of contrast at the level of the mid ureter. A glidewire was then passed up the right renal unit . The cystoscope was removed. A semirigid ureteroscope was inserted. Ureteroscopy was performed in the usual fashion. Lower ureter was within normal limits. Mid ureter revealed a stone impacting the entire lumen of the right ureter. After placement of a holmium fiber for lithotripsy. The stone was pushed back into the renal collecting system. Continuation of the ureteroscopy was unable to find the stone. Therefore, the ureteroscope was removed. A 22-cm 6-Thai right JJ stent was left in place. X-rays confirmed good position of the stent. The bladder was emptied. The scope was removed. The patient tolerated the procedure well. She returned to the recovery room in good condition. Nina [id number]
== END 2018-06-03 17:11 | disposition home or self-care (01) ==
LOC: JER 23:42 → JERBED 06-02 02:42 → J8W 06-02 18:25
PROVIDERS: ADMIT Internal Medicine; ATTEND Internal Medicine
PROC: 0WHR8YZ Insertion of Other Device into Genitourinary Tract, Via Natural or Artificial Opening Endoscopic (ICD-10-PCS; 2018-06-02)
PROC: BT1DYZZ Fluoroscopy of Right Kidney, Ureter and Bladder using Other Contrast (ICD-10-PCS; 2018-06-02)
PROC: 3E0333Z Introduction of Anti-inflammatory into Peripheral Vein, Percutaneous Approach (ICD-10-PCS; 2018-06-02)
PROC: 3E033NZ Introduction of Analgesics, Hypnotics, Sedatives into Peripheral Vein, Percutaneous Approach (ICD-10-PCS; 2018-06-02)
PROC: 3E0337Z Introduction of Electrolytic and Water Balance Substance into Peripheral Vein, Percutaneous Approach (ICD-10-PCS; 2018-06-02)
PROC: 3E033GC Introduction of Other Therapeutic Substance into Peripheral Vein, Percutaneous Approach (ICD-10-PCS; 2018-06-02)
PROC: 0T7D8DZ Dilation of Urethra with Intraluminal Device, Via Natural or Artificial Opening Endoscopic (ICD-10-PCS; principal; 2018-06-02 15:00)
DX: N13.2 Hydronephrosis with renal and ureteral calculous obstruction (principal); E66.9 Obesity, unspecified; Z68.33 Body mass index [BMI] 33.0-33.9, adult
CPT/HCPCS: 36415; 76000-TC-FY; 76775-TC; 80048; 80053; 81003; 81015; 83735; 84100; 84703; 85025; 85610; 85730; 87086; 93005; 93010; 94760; 99285-25; G0378; J0131

== ENCOUNTER 2018-06-20 12:30 | Day surgery (SDC) | payer BC ==
[2018-06-19 16:12] VITALS: BMI 32.3
[2018-06-20] MEDS ORDERED: MIDAZOLAM HCL 2 MG/2 ML SINGLE DOSE VIAL ONE ×3 (14:05→14:20)
[2018-06-20] MEDS ORDERED: ceFAZolin SODIUM 1 GM VIAL IVPB ONE (14:10)
[2018-06-20] MEDS ORDERED: ceFAZolin SODIUM 1 GM VIAL ONE (14:12)
[2018-06-20] MEDS ORDERED: DEXAMETHASONE SOD PHOSPHATE 4 MG/1 ML VIAL ONE (14:20)
[2018-06-20] MEDS ORDERED: KETOROLAC TROMETHAMINE 30 MG/1 ML VIAL ONE (14:20)
--- NOTE | 2018-06-20 15:08 | OP ---
Operative Note - Note: Operative Date: 06/20/18 Pre-Operative Diagnosis: Right renal calculus Operation: ESWL Right Findings: Upper ureteral calculus Right Post-Operative Diagnosis: Same as Pre-op Surgeon: Trevor Allen Anesthesia: General
[2018-06-20 16:05] VITALS: BP 111/60; PULSE 72; TEMP 98
--- NOTE | 2018-08-25 13:12 | OP ---
DATE OF OPERATION: 06/20/2018 SURGEON: Trevor Allen MD ANESTHESIA: General. PREOPERATIVE DIAGNOSIS: Right renal calculus. POSTOPERATIVE DIAGNOSIS: Right renal calculus. PROCEDURE: Electrohydraulic shock-wave lithotripsy. FINDINGS: A stone was located in the mid ureter about 6-7 mm with hydronephrosis. DESCRIPTION OF PROCEDURE: With patient in supine position prepped and draped in the usual manner. Using x-rays, the stone was localized, and 2500 shock waves were given at level 7. The patient tolerated the procedure well and left the operating room in a satisfactory condition. TREVOR ALLEN M.D. [id number]
== END 2018-06-20 16:05 | disposition home or self-care (01) ==
LOC: JASU-SURG 12:30
PROVIDERS: ATTEND Urology
PROC: 0TF3XZZ Fragmentation in Right Kidney Pelvis, External Approach (ICD-10-PCS; principal; 2018-06-20 14:00)
DX: N20.0 Calculus of kidney (principal)
CPT/HCPCS: 84703

== ENCOUNTER 2018-07-04 12:35 | Day surgery (SDC) | payer BC ==
[2018-07-03 16:45] VITALS: BMI 33.0
[2018-07-04] MEDS ORDERED: ceFAZolin SODIUM 1 GM VIAL IVPB ONE ×3 (14:30→15:54)
[2018-07-04] MEDS ORDERED: PROMETHAZINE HCL 25 MG/1 ML VIAL IVPUSH PRN (15:05)
[2018-07-04] MEDS ORDERED: ONDANSETRON 4 MG/2 ML VIAL IVPUSH PRN (15:05)
[2018-07-04] MEDS ORDERED: LACTATED RINGERS SOLUTION 1,000 ML IV SCH (15:15)
--- NOTE | 2018-07-04 15:20 | OP ---
Operative Note - Note: Operative Date: 07/04/18 Pre-Operative Diagnosis: Right ureteral calculus with stent Operation: Cysto right retro, ureteroscopy and stent placement Post-Operative Diagnosis: Same as Pre-op Surgeon: Trevor Allen Anesthesia: General Operative Report Dictated: Yes
--- NOTE | 2018-07-04 16:06 | OP ---
DATE OF OPERATION: 07/04/2018 SURGEON: Trevor Allen MD ANESTHESIA: General. PREOPERATIVE DIAGNOSIS: Right ureteral calculus with indwelling stent. POSTOPERATIVE DIAGNOSIS: Right ureteral calculus with indwelling stent. PROCEDURES: Cystoscopy, removal of stent, right ureteroscopy, retrograde, and replacement of stent right side. FINDINGS: After removing the previously placed stent, a guide wire was placed. Retrograde was performed. There was no indication of any calculus and the ureteroscopy performed all the way into the kidney. Each calyx was inspected, irrigated free of any debris, and no further evidence of any calculus noted. Stent was replaced. The patient tolerated the procedure well. Left the operating room under satisfactory condition. Nina W[place]/[id number]
[2018-07-04] MEDS ORDERED: ONDANSETRON 4 MG/2 ML VIAL ONE (16:09)
[2018-07-04 16:18] VITALS: TEMP 97.8
[2018-07-04 18:18] VITALS: BP 122/77; PULSE 72
--- NOTE | 2018-07-05 09:56 | EKG ---
Test Reason : Blood Pressure : / mmHG Vent. Rate : 067 BPM Atrial Rate : 067 BPM P-R Int : 208 ms QRS Dur : 094 ms QT Int : 428 ms P-R-T Axes : 058 042 047 degrees QTc Int : 452 ms NORMAL SINUS RHYTHM NORMAL ECG WHEN COMPARED WITH ECG OF 02-JUN-2018 05:57, NO SIGNIFICANT CHANGE WAS FOUND Confirmed by SINDY FRITZ MD ([id number]) on 07/05/2018 9:56:03 AM Referred By: Confirmed By:SINDY FRITZ MD
--- NOTE | 2018-07-06 10:42 | PATH ---
Surgical Pathology Report Patient Name: KAILEE HOWELL [facility]. Rec. #: [id number] /Age/Gender: 1980 (Age: 37) / F Account: [id number] Location: [facility] Taken: 07/04/2018 Received: 07/05/2018 Reported: 07/06/2018 Physicians: Nina Mclean M.D. Specimen(s) Received OLD STENT Clinical History Hydronephrosis with renal and ureteral calculus Final Diagnosis OLD STENT, REMOVAL: CONSISTENT WITH URETERAL STENT. MACROSCOPIC DIAGNOSIS. Electronically Signed Stacy Singh M.D. Gross Description Received fresh labeled "old stent," is a 35 cm in length yellow-green, coiled portion of tubing, consistent with a ureteral stent. No soft tissue is present. No sections are submitted, gross only. /07/05/201807/05/2018
== END 2018-07-04 18:19 | disposition home or self-care (01) ==
LOC: JASU-SURG 12:35
PROVIDERS: ATTEND Urology
PROC: 0WHR8YZ Insertion of Other Device into Genitourinary Tract, Via Natural or Artificial Opening Endoscopic (ICD-10-PCS; 2018-07-04)
PROC: 0TP98DZ Removal of Intraluminal Device from Ureter, Via Natural or Artificial Opening Endoscopic (ICD-10-PCS; 2018-07-04)
PROC: 0T768DZ Dilation of Right Ureter with Intraluminal Device, Via Natural or Artificial Opening Endoscopic (ICD-10-PCS; principal; 2018-07-04 14:00)
DX: N20.1 Calculus of ureter (principal)
CPT/HCPCS: 76000-TC-FY; 84703; 88300-TC; 93005; 93010; 94760; J0131